=== PATIENT | female | born 1980 | race Caucasian/White ===

== ENCOUNTER 2022-01-11 09:58 | Outpatient (CLI) | payer BC | END 2022-01-11 09:59 | disposition home or self-care (01) | LOC: CSHMAMMO 09:58 | PROVIDERS: ATTEND Obstetrics & Gynecology | DX: Z12.31 Encounter for screening mammogram for malignant neoplasm of breast (principal) | CPT/HCPCS: 77063; 77067 ==

== ENCOUNTER 2023-01-15 08:49 | Outpatient (CLI) | payer BC | END 2023-01-15 08:50 | disposition home or self-care (01) | LOC: CSHMAMMO 08:49 | PROVIDERS: ATTEND Obstetrics & Gynecology | DX: Z12.31 Encounter for screening mammogram for malignant neoplasm of breast (principal) | CPT/HCPCS: 77063; 77067 ==

== ENCOUNTER 2024-02-06 08:21 | Outpatient (CLI) | payer BC | END 2024-02-06 08:22 | disposition home or self-care (01) | LOC: CSHMAMMO 08:21 | PROVIDERS: ATTEND Obstetrics & Gynecology | DX: Z12.31 Encounter for screening mammogram for malignant neoplasm of breast (principal) | CPT/HCPCS: 77063; 77067 ==

== ENCOUNTER 2025-02-11 09:33 | Outpatient (CLI) | payer BC | END 2025-02-11 09:34 | disposition home or self-care (01) | LOC: CSHMAMMO 09:33 | PROVIDERS: ATTEND Obstetrics & Gynecology | DX: Z12.31 Encounter for screening mammogram for malignant neoplasm of breast (principal); R92.333 Mammographic heterogeneous density, bilateral breasts | CPT/HCPCS: 77063; 77067 ==